=== PATIENT | female | born 1985 | race Caucasian/White ===

== ENCOUNTER 2017-08-21 13:02 | Emergency (ER) | payer OTHER, MEDICAID, SELFPAY | END 2017-08-21 17:13 | disposition home or self-care (01) | PROVIDERS: Emergency Provider Internal Medicine; Visit Provider Internal Medicine | DX: R10.9 Unspecified abdominal pain (principal); F17.210 Nicotine dependence, cigarettes, uncomplicated | CPT/HCPCS: 36415; 74176; 80053; 81003; 81025; 82248; 83605; 83690; 85025; 96361; 96374; 96375; 99058; 99284; J1885; J2405 ==